=== PATIENT | female | born 1985 | race Caucasian/White ===

== ENCOUNTER 2025-02-03 15:00 | Outpatient (CLI) | payer BC, SELFPAY ==
--- NOTE | 2025-02-03 15:20 | CRLHL7_ITS ---
For Patients: As a result of the Century Cures Act, medical imaging exams and procedure reports are released immediately into your electronic medical record. You may view this report before your referring provider. If you have questions, please contact your health care provider. BILATERAL DIGITAL SCREENING MAMMOGRAM WITH COMPUTER-AIDED DETECTION AND TOMOSYNTHESIS CLINICAL HISTORY: Routine screening exam. COMPARISON: None. Baseline. TECHNIQUE: Digital mammogram in CC and MLO projections including computer-aided detection (CAD) and tomosynthesis. BREAST COMPOSITION: The breasts are heterogeneously dense, which may obscure small masses. FINDINGS: RIGHT Breast: No suspicious findings. LEFT Breast: There is a focal asymmetry in the upper inner quadrant, posterior depth. IMPRESSION: LEFT breast focal asymmetry. RECOMMENDATIONS: Additional mammographic views of the LEFT breast including 90-degree lateral, spot compression CC and MLO. LEFT breast ultrasound may also be required. BI-RADS Category 0: Incomplete: Need Additional Imaging Evaluation The [facility] will contact the patient for follow-up. A lay language report of this examination will be provided to the patient. Dictated by Ignacia Cummins MD @ 02/06/2025 9:06:22 AM daysi/Dictated by: Ignacia Cummins MD @ 02/06/2025 9:24:00 AM (Electronically Signed)
== END 2025-02-03 15:01 | disposition home or self-care (01) ==
LOC: MAMMO 15:01
PROVIDERS: PCP Family Medicine; Visit Provider Family Medicine
DX: Z12.31 Encounter for screening mammogram for malignant neoplasm of breast (principal); N63.20 Unspecified lump in the left breast, unspecified quadrant
CPT/HCPCS: 77063; 77067

== ENCOUNTER 2025-02-22 08:28 | Outpatient (CLI) | payer BC, SELFPAY ==
--- NOTE | 2025-02-22 08:45 | CRLHL7_ITS ---
For Patients: As a result of the Cures Act, medical imaging exams and procedure reports are released immediately into your electronic medical record. You may view this report before your referring provider. If you have questions, please contact your health care provider. DIGITAL DIAGNOSTIC LEFT MAMMOGRAM USING TOMOSYNTHESIS LEFT BREAST ULTRASOUND CLINICAL HISTORY: LEFT breast mass/asymmetry. COMPARISON: 02/03/2025. TECHNIQUE: Digital LEFT mammogram in three projections. Tomosynthesis was used in this interpretation. Real-time ultrasound imaging of LEFT breast with imaging documentation. Scanning was performed by both the technologist and the radiologist. BREAST COMPOSITION: The breast is heterogeneously dense, which may obscure small masses. FINDINGS: Additional mammogram images LEFT breast submitted. Decreased conspicuity of previously noted asymmetric density. No architectural distortion or suspicious calcifications. No adenopathy. Targeted LEFT breast ultrasound performed. At 8 o`clock 2-3 cm from the nipple, normal dense fibroglandular tissue is present. No suspicious mass or fibrocystic change. IMPRESSION: No evidence of malignancy. RECOMMENDATIONS: Routine screening mammography. A lay language report of this examination will be provided to the patient. BI-RADS Category 2: Benign Dictated by Cale Reynoso MD @ 02/22/2025 10:39:01 AM jj/Dictated by: Cale Reynoso MD @ 02/22/2025 10:39:00 AM (Electronically Signed)
--- NOTE | 2025-02-22 09:15 | CRLHL7_ITS ---
For Patients: As a result of the Cures Act, medical imaging exams and procedure reports are released immediately into your electronic medical record. You may view this report before your referring provider. If you have questions, please contact your health care provider. SEE DIGITAL DIAGNOSTIC LEFT MAMMOGRAM PERFORMED SAME DAY CRL:daysi tavarez/Dictated by: Cale Reynoso MD @ 02/22/2025 10:37:00 AM (Electronically Signed)
== END 2025-02-22 08:29 | disposition home or self-care (01) ==
LOC: MAMMO 08:29
PROVIDERS: PCP Family Medicine; Visit Provider Family Medicine
DX: N63.20 Unspecified lump in the left breast, unspecified quadrant (principal); R92.8 Other abnormal and inconclusive findings on diagnostic imaging of breast
CPT/HCPCS: 76642; 77065; G0279